=== PATIENT | male | born 1955 | race Caucasian/White ===

== ENCOUNTER 2021-04-16 18:27 | Emergency (ER) | payer MEDICARE, SELFPAY ==
[2021-04-16 18:41] VITALS: BP 182/83; PULSE 68; RESP 16; TEMP 37.2; O2SAT 98; BMI 26.6
[2021-04-16 20:37] VITALS: BP 183/86; PULSE 61; RESP 20; O2SAT 98
--- NOTE | 2021-04-16 22:45 | ED.GIBLEED ---
HPI - GI Bleed General Chief complaint: GI Bleed Stated complaint: Mass in Rectal Area, Losing Blood, Painful Time Seen by Provider: 04/16/21 22:22 Source: patient and family ( and daughter) Mode of arrival: Ambulatory Limitations: no limitations History of Present Illness HPI Narrative: This is a 66-year-old male who comes emergency department for complaint of mass in the rectal area, area is painful. Patient does have some dementia and family noticed that he seemed very uncomfortable and sitting off to the side. He has not had a bowel movement in possibly 24-12 hours but it is unclear exactly. Patient denies any abdominal pain. He only admits to rectal pain. He has not had any nausea or vomiting has not any fevers. He has not had similar symptoms in the past. He takes atorvastatin, donepezil, losartan, pantoprazole daily. They are visiting from [place]. Patient has never had any similar symptoms, rectal banding or abdominal surgeries. Related Data Home Medications Medication Instructions Recorded Confirmed Atorvastatin PO 04/16/21 Denazepril PO 04/16/21 04/16/21 Losartan PO 04/16/21 04/16/21 pantoprazole PO 04/16/21 04/16/21 Previous Rx's Medication Instructions Recorded polyethylene glycol 3350 17 17 g PO BID #238 g 04/16/21 gram/dose oral powder (Miralax) Allergies Allergy/AdvReac Type Severity Reaction Status Date / Time No Known Drug Allergies Allergy Unverified 04/16/21 16:43 Review of Systems Review of Systems ROS Unobtainable: All systems reviewed & are unremarkable except as noted in HPI and below Patient History Social History Smoking Status: Former smoker Smoking Status: Former smoker Exam Narrative Exam Narrative: GENERAL: Alert and oriented, patient does have some mild confusion which is baseline per family, well-nourished male in mild distress. HEENT: Head normocephalic, atraumatic, EOMI, pupils reactive, face symmetric, moist mucous membranes NECK: Supple, full range of motion CARDIOVASCULAR: Regular rate and rhythm without murmurs, rubs or gallops. RESPIRATORY: Breath sounds equal bilaterally, no wheezes rales or rhonchi. ABDOMEN: Soft, nontender. Normoactive bowel sounds all 4 quadrants. No guarding or rebound, rigidity, no mass, on rectal exam patient has a prolapsed rectum, skin is tender to touch but not exquisitely so. There is some serosanguineous drainage but no active bleeding. Patient rectum extends about 2 cm. : No CVA tenderness EXTREMITIES: Normal range of motion, no clubbing or edema. Neurovascularly intact NEUROLOGICAL: Cranial nerves II through XII grossly intact. Moving all extremities SKIN: Warm, dry, no petechiae, no rashes or lesions. Initial Vital Signs Initial Vital Signs: Vital Signs Temperature 99.0 F 04/16/21 18:41 Pulse Rate 68 04/16/21 18:41 Respiratory Rate 16 04/16/21 18:41 Blood Pressure 182/83 H 04/16/21 18:41 Pulse Oximetry 98 04/16/21 18:41 Course Consultations Consultation #1: Dr. Rodriguez, saw and evaluated the patient in the department. Plan for conservative measures. Patient is to return for recheck in 24 hours. If patient continues to have improvement and is stooling regularly he can follow up in [place] if he is not improving, has any nausea vomiting or abdominal pain or any other changes he is asked to return. Vital Signs Vital signs: Vital Signs - 8 hr 04/16/21 23:06 04/16/21 23:13 Temperature 99.4 F Pulse Rate 57 L 59 L Respiratory Rate 16 Blood Pressure 156/70 H 156/70 H Pulse Oximetry 98 98 Discharge Plan Departure Patient Disposition: Home Clinical Impression: Rectal prolapse Instructions: DI for Rectal Prolapse Activity Restrictions/Additional Instructions: Return for recheck in 24 hours. May continue home medications as prescribed. Play sugar a large amount such as a half to 1 cup of sugar on the rectal area and leave it in place for an hour. Most likely laying on your stomach would be the easiest positioning or possibly on your side. I recommend Sitz baths 3-4 times daily for 20-30 minutes. You may continue with Tylenol up to a 1000 mg every 8 hours as needed for pain. You want to take a stool softener such as MiraLax 1-2 times daily until stools are soft and liquidy. Please return if you are having worsening pain, increasing bleeding, abdominal pain, nausea or vomiting, if you are not passing gas or having a bowel movement or any other new or concerning symptoms. Prescriptions: New polyethylene glycol 3350 [Miralax] 17 gram/dose powder 17 g PO BID Qty: 238 RF: 0 No Action Atorvastatin PO RF: 0 Losartan PO RF: 0 Denazepril PO RF: 0 pantoprazole PO RF: 0 Referrals: Howard Rodriguez MD [Physician] - Miscellaneous,MD Scar [Primary Care Provider] -
[2021-04-16 23:06] VITALS: BP 156/70; PULSE 57; O2SAT 98
[2021-04-16 23:13] VITALS: BP 156/70; PULSE 59; RESP 16; TEMP 37.4; O2SAT 98
== END 2021-04-16 23:20 | disposition home or self-care (01) ==
PROVIDERS: Emergency Provider Emergency Medicine
DX: K62.3 Rectal prolapse (principal)
CPT/HCPCS: 99281

== ENCOUNTER 2021-04-17 17:57 | Emergency (ER) | payer MEDICARE, SELFPAY ==
[2021-04-17 18:11] VITALS: BP 146/95; PULSE 66; RESP 18; TEMP 37; O2SAT 98; BMI 25.8
--- NOTE | 2021-04-17 18:26 | ED_ITS ---
HPI - Abdominal Pain General Chief Complaint: Abdominal Pain Stated Complaint: RE CHECK OF RECTAL PROLAPSE Time Seen by Provider: 04/17/21 18:26 Source: patient Mode of arrival: Ambulatory Limitations: no limitations History of Present Illness HPI narrative: This is a 66-year-old male who returns for recheck of his rectal prolapse. Patient was seen by myself and General surgery last night. Patient has been using sugars, Sitz baths and a doughnut pillow regularly. He has been stooling soft and without issue. He still has quite a bit of discomfort. They have been doing Tylenol twice daily for his pain. Patient has had continued to have little bit of serosanguineous slightly bloody drainage but his states that seems to be decreased. Patient has not had any fevers or chills. No nausea or vomiting. He does not have any abdominal pain his pain is all at the rectum itself. Related Data Home Medications Medication Instructions Recorded Confirmed Atorvastatin PO 04/16/21 Denazepril PO 04/16/21 04/16/21 Losartan PO 04/16/21 04/16/21 pantoprazole PO 04/16/21 04/16/21 Previous Rx's Medication Instructions Recorded polyethylene glycol 3350 17 17 g PO BID #238 g 04/16/21 gram/dose oral powder (Miralax) Allergies Allergy/AdvReac Type Severity Reaction Status Date / Time No Known Drug Allergies Allergy Unverified 04/17/21 18:19 Review of Systems Review of Systems ROS Unobtainable: All systems reviewed & are unremarkable except as noted in HPI and below Patient History Social History Smoking Status: Former smoker Smoking Status: Former smoker alcohol intake frequency: holidays/special occasions only Substance Use Type: does not use Exam Narrative Exam Narrative: GENERAL: Alert and oriented, male in mild distress. Initially seated. HEENT: Head normocephalic, atraumatic, EOMI, pupils reactive, face symmetric, moist mucous membranes NECK: Supple, full range of motion CARDIOVASCULAR: Regular rate and rhythm without murmurs, rubs or gallops. RESPIRATORY: Breath sounds equal bilaterally, no wheezes rales or rhonchi. ABDOMEN: Soft, nontender. Normoactive bowel sounds all 4 quadrants. No guarding or rebound, rigidity, no mass, on rectal exam patient does have prolapsed rectum. Area is tender to touch but not exquisitely so. It is full. Skin is dry with no active drainage at this time. Patient has some very mild improvement but otherwise appears quite similar to exam yesterday. : No CVA tenderness EXTREMITIES: Normal range of motion, no clubbing or edema. Neurovascularly intact NEUROLOGICAL: Cranial nerves II through XII grossly intact. Moving all extremities SKIN: Warm, dry, no petechiae, no rashes or lesions. Initial Vital Signs Initial Vital Signs: Vital Signs Temperature 98.6 F 04/17/21 18:11 Pulse Rate 66 04/17/21 18:11 Respiratory Rate 18 04/17/21 18:11 Blood Pressure 146/95 H 04/17/21 18:11 Pulse Oximetry 98 04/17/21 18:11 Course Vital Signs Vital signs: Vital Signs - 8 hr 04/17/21 18:11 Temperature 98.6 F Pulse Rate 66 Respiratory Rate 18 Blood Pressure 146/95 H Pulse Oximetry 98 MDM - Abdominal Pain MDM Narrative Medical decision making narrative: Discussed with patient and family they are both comfortable continuing with conservative management. Patient is not having any signs of bowel obstruction is stooling regularly. Plan to continue a stool softener, they can increase pain medicine the Tylenol 1000 mg every 8 hours. Sitz baths and sugar to the affected area regularly. Patient was encouraged to return for recheck as needed or if not continuing to improve or having worsening symptoms. If doing well patient is to follow-up with his physician on the [facility] in order to see General surgery or rectal surgeon. Discharge Plan Departure Patient Disposition: Home Clinical Impression: Rectal prolapse Instructions: DI for Rectal Prolapse Activity Restrictions/Additional Instructions: Please return for recheck in 24 hours. If you are having improvement in continuing to stool you do not have to return. Continue a stool softener to make sure stools are soft and loose. You may continue with Tylenol up to a 1000 mg every 8 hours as needed. Continue all your other home medications as prescribed. Continue with conservative measures including Sitz baths 3-4 times daily and sugar to the affected area as discussed. Please return for worsening pain, increasing bleeding, new abdominal pain, nausea vomiting, fevers, if you are not passing gas or having a bowel movement or any other new or concerning symptoms. Prescriptions: No Action Atorvastatin PO RF: 0 Losartan PO RF: 0 Denazepril PO RF: 0 pantoprazole PO RF: 0 polyethylene glycol 3350 [Miralax] 17 gram/dose powder 17 g PO BID Qty: 238 RF: 0 Referrals: Howard Rodriguez MD [Primary Care Provider] -
== END 2021-04-17 18:54 | disposition home or self-care (01) ==
PROVIDERS: Emergency Provider Emergency Medicine; PCP Surgery; Referring Provider Surgery
DX: K62.3 Rectal prolapse (principal)
CPT/HCPCS: 99281